=== PATIENT | female | born 1940 | race Caucasian/White ===

== ENCOUNTER 2016-07-08 16:19 | Inpatient (IN) | payer MEDICARE, MEDICAID ==
[~2016-07-08] VITALS: Ht 165.1 cm; Wt 102.8 kg
--- NOTE | ~2016-07-08 | PR ---
[place], [place] PROGRESS NOTE NAME: EMANUEL IDEZ [facility] #: [id number] UNIT #: [id number] ROOM: 504 DOCTOR: JOHN MUÑIZ MD,CHIQUI BIRTHDATE: [birth year] DOS: 07/10/2016 PULMONARY FOLLOWUP SUBJECTIVE: She has been noted comfortable at this time, underwent the upper endoscopy for the patient that was completed by Dr. Rodrigues. The patient was noted with findings of esophagitis, gastric ulcer, and gastritis. She was denying any symptoms of acute abdominal pain at the time of the assessment. She denied symptoms of hemoptysis. Mild cough was noted without any sputum expectoration. OBJECTIVE: VITAL SIGNS: For the patient, which has been recorded; temperature normal, respiratory rate 18, heart rate 82, blood pressure 146/80. Pulse oxygen saturation of the patient noted 3 liters nasal cannula 95% saturation. HEENT: Examination showed no new change. NECK: Supple and obese. CARDIOVASCULAR: S1, S2 audible. LUNGS: Absent breath sounds in the left lower portion of the lungs for the patient was noted. ABDOMEN: Soft with chronic obesity. EXTREMITIES: Shows mild edema. LABORATORY DATA: CBC this morning, WBC count 17.5, hemoglobin 9.4, hematocrit 30.3, platelet count was normal. The BMP of the patient of 07/10/2016, glucose 144, BUN and creatinine was normal, sodium 150, CO2 of 34. Blood culture: The patient showed no bacterial growth. The patient ____ obtained on the . The CEA level for this patient that was done this morning was noted severely elevated at 1186. IMPRESSION: 1. The patient who has been currently admitted to the hospital noted with a large left-sided pleural fluid. The patient will be planned for thoracentesis to be done today. 2. Possibility of abdominal malignancy originating from the colon was suspected strongly because of the elevation of the CEA level. Possible consideration of malignant pleural fluid remains in consideration. Further assessment of current finding at this time does not seem to be consistent with acute pneumonia at the reason of the pleural fluid. 3. The patient with hemetemesis as well. 4. Gastrointestinal bleeding. PLAN OF TREATMENT: She was planned for thoracentesis to be done at the bedside. The patient with ultrasound assessment. She was agreeable for the procedure. Continuation of the previous treatment, plan of management, and further investigation for this patient for the possible source of malignancy for this patient originating from the abdomen. Other supportive plan of therapy and management, plan of care. Usual treatment. [place], [place] PROGRESS NOTE NAME: EMANUEL DIEZ UNIT #: [id number] ROOM: [facility] DOCTOR: CHIQUI HARRELL MD BIRTHDATE: [birth year] CHIQUI LOPEZ MD CM:PNTRANS [id number] CHIQUI MUÑIZ MD 07/11/165 interface
--- NOTE | ~2016-07-08 | PROC NOTE ---
[place], [place] PROCEDURE NOTE NAME: EMANUEL DIEZ [facility] #: [id number] UNIT #: [id number] ROOM: 504 DOCTOR: JOHN MUÑIZ MD,CHIQUI BIRTHDATE: [birth year] DOS: PROCEDURE: Thoracentesis, left side with ultrasound guidance. PREOPERATIVE DIAGNOSIS: Large left pleural fluid for the patient, etiology undetermined. POSTOPERATIVE DIAGNOSIS: Removal of 1400 mL of mildly hemorrhagic pleural fluid from the patient's left pleural space without any difficulty. PROCEDURE DESCRIPTION: Informed consent obtained for the patient. The patient was placed in a sitting position. Ultrasound of the chest for the patient was done and large pocket of fluid at the site of thoracentesis isolated in the posterior left lower chest wall. After that, skin was cleaned with chlorhexidine solution. Local anesthetic given in the skin and intercostal space. During administration of local anesthetic, a small amount of fluid was aspirated. After that, incision given in the skin. [place] thoracentesis catheter introduced through the incision into the left pleural space without any difficulty. A total of 1400 mL of mildly hemorrhagic pleural fluid was removed from the left pleural space without any difficulty and sent for all the appropriate testing including cytology. Procedure was well tolerated by the patient without any difficulty. Chest x-ray of the patient that was done post-procedure was personally reviewed and there was no evidence of pneumothorax, mild improvement in the aeration of the lungs was noted with remaining area of pleural fluid, pleural thickening or atelectasis of the left lower lobe. CHIQUI LOPEZ MD CM:PROCNOTE:PROCEDURE NOTE [id number] CHIQUI MUÑIZ MD
--- NOTE | ~2016-07-08 | CON ---
[place], [place] REPORT OF CONSULTATION [id number] UNIT #: [id number] ROOM: 504 DOCTOR: DK MARCELO,NIKKI BIRTHDATE: [birth year] DOS: 07/09/2016 HISTORY OF PRESENT ILLNESS: A 75-year-old patient who was admitted through the Emergency Room, brought from the shelter and with coffee ground emesis, Zofran and PPI has been given. The patient had to be admitted for definitive evaluation and assessment of the source of GI bleed. The patient's white blood cell was 14.9, H and H of 11 and 36. Comprehensive metabolic panel, BUN and creatinine normal. Glucose of 201. Electrolytes were balanced. Liver function tests were within normal limits. Gastric occult was positive. Arterial blood gases, pH of 7.5, pCO2 of 50 and pO2 of 60. Lactic acid was 2.1. Troponin was addressed. NG tube tip in the gastric pouch is noticed. Chest x-ray, persistent left pleural effusion. Urinalysis was bacteria 4+. Lactic acid followup 2+. Chest CT was done, nodularity and abdominal omentum, mesentery compatible with tumor spread, further evaluation needed. There is diffuse colonic diverticulosis. There appears to be somewhat focal area of adherent small bowel in the left pelvic, some air fluid level is noticed. Moderate left pleural effusion reassessed. CBC differential periodically reevaluated, latest one white blood cell 18, H and H dropped to 10 and 32. Her INR is 1.2. Comprehensive metabolic panel, electrolyte balance, phosphorus 4, magnesium 2.2. Liver function test normal. Hemoglobin A1c 7.8. Vitamin B12 is 1200, normal and above, folic acid 5.26, borderline low. Thyroid studies within normal limits. PAST MEDICAL HISTORY: Associated with diabetes mellitus, chronic obstructive pulmonary disease, respiratory insufficiency, hypothyroidism, obesity, essential hypertension. PAST SURGICAL HISTORY: Cholecystectomy, hysterectomy, thyroidectomy, tonsillectomy, back surgery. SOCIAL HISTORY: Resides in shelter, history of tobacco use, stopped 3 years ago. ALLERGIES: SULFA AND ADENOSINE. MEDICATIONS: List has been reviewed including Zantac p.r.n. Otherwise, other medications reviewed. PHYSICAL EXAMINATION: GENERAL: Not acutely distressed, obese. VITAL SIGNS: Stable. HEENT: Head normocephalic, nontraumatic. Mouth and buccal mucosa benign. NECK: Supple, no thyromegaly. CHEST: Symmetric anatomy, equal expansion. No wheeze, no rhonchi. HEART: Normal sinus rhythm, no murmur, no gallop. ABDOMEN: Soft. No hepato-organomegaly. Obese, bowel sounds present. EXTREMITIES: No cyanosis, no pedal edema. NEUROLOGIC: Alert and oriented. LABORATORY DATA: Reviewed. Records reviewed. Data reviewed. [place], [place] REPORT OF CONSULTATION NAME: EMANUEL DIEZ UNIT #: [id number] ROOM: [facility] DOCTOR: NIKKI ROOT MD BIRTHDATE: [birth year] IMPRESSION: Hematemesis, shortness of breath, pleural effusion. OTHER ADJUNCTIVE DIAGNOSES: As outlined in paragraph past medical history, obesity, hypothyroidism, hypercholesterolemia, hypertension, diabetes mellitus, chronic obstructive pulmonary disease, and as indicated. PLAN AND DISCUSSION: EGD investigation of hematemesis. NIKKI ROOT MD CM:CONSTR:REPORT OF CONSULTATION 07/09/16 0949 interface
--- NOTE | ~2016-07-08 | PR ---
[place], [place] PROGRESS NOTE NAME: EMANUEL DIEZ [facility] #: [id number] UNIT #: [id number] ROOM: 504 DOCTOR: JOHN MUÑIZ MD,CHIQUI BIRTHDATE: [birth year] DOS: 07/11/2016 SUBJECTIVE: She was still complaining of abdominal pain. Shortness of breath has been noted significantly decreased after the thoracentesis, which were done yesterday for the patient with large volume of pleural fluid was removed. She denies any symptoms of chest pain. Mild cough was noted without any sputum expectoration. Denies any wheezing. OBJECTIVE: VITAL SIGNS: Show normal temperature, respirations 20, heart rate 72, blood pressure 150/72 recorded this morning. Intake 3000 mL, output 1300 mL, does not include the pleural fluid. The pulse oxygen saturation 95% on 3 liters nasal canula. HEENT: Chronic obesity. NECK: Supple, short and obese. CARDIOVASCULAR: S1, S2 audible. LUNGS: Improvement in air entry noted generally in the left lung; however, breath sounds still noted decreased in the left lower lung posteriorly. ABDOMEN: Soft and obese. LABORATORY DATA: BMP of the patient that was done this morning showed glucose 165. Sodium 147. CBC this morning: WBC count 13.4, hemoglobin 9.5, hematocrit 30.9 and platelet count was normal. Chest x-ray post thoracentesis was already described in yesterday's note. The pleural fluid analysis yesterday on the patient shows 728 wbc's, 17,000 rbc's with 85% macrophages. Chemistry were noted with protein 3.5, cholesterol of 53, albumin 1.4, amylase 15, triglycerides 38 and LDH of 157. Findings consistent with an exudative pleural fluid. The culture for the patient on the pleural fluid was pending. Gram stain does not show any organisms. IMPRESSION: 1. Large pleural fluid in the left side. The etiology is unclear with possible consideration of malignant pleural fluid, the patient remains in consideration. 2. Suspected cancer of the colon for this patient as well with abdominal pain. 3. Chronic obesity as well. 4. Gastrointestinal bleeding for the patient, which has been also assessed. PLAN OF TREATMENT: No changes in the plan of management at this time. Continue current therapy as in progress. Usual care. Further investigation of abdominal problem to be continued. Monitoring results of the pleural fluid cytology, current exudate, lymphocyte predominant pleural fluid. [place], [place] PROGRESS NOTE NAME: EMANUEL DIEZ UNIT #: [id number] ROOM: 504 DOCTOR: CHIQUI HARRELL MD BIRTHDATE: [birth year] CHIQUI LOPEZ MD CM:PNSARA [id number] CHIQUI MUÑIZ MD 07/11/16 2122 interface
--- NOTE | ~2016-07-08 | PROC NOTE ---
[place], [place] PROCEDURE NOTE [id number] #: [id number] ROOM: 504 DOCTOR: DK MARCELO,NIKKI BIRTHDATE: [birth year] DOS: 07/09/2016 HISTORY OF PRESENT ILLNESS: The patient presented from half-way with hematemesis, to undergo investigation. The patient has some abdominal distress for past 1 week. PROCEDURE: Today's procedure part of investigation is panendoscopy. PREMEDICATION: Versed and Diprivan. SCOPE: Olympus folding gastroscope Q10 video. REPORT: After putting the patient in the left lateral position and after application of lubricant to the scope, the scope was introduced. Thereafter, under direct visualization, I advanced through the length of esophagus without difficulty. Large volume of bile retention in the gastric pouch was suctioned out and removed. Scope was negotiated into duodenum again. Presence of bilious matter into the second part of the duodenum was identified sign was noticed, suctioned out. Mid gastric pouch small ulceration was photographed, biopsied. The patient extubated, tolerated procedure well. IMPRESSION: Distal esophagitis; bile reflux; gastritis; hypertrophic gastric folds; mid gastric small ulcerations, status post biopsy; presence of bilious matter retention in the duodenum, the latter may signify small-bowel obstruction. CT scan of the abdomen today pending. NIKKI ROOT MD CM:PROCNOTE:PROCEDURE NOTE [id number] NIKKI ROOT MD
--- NOTE | ~2016-07-08 | CON ---
[place], [place] REPORT OF CONSULTATION [id number] UNIT #: [id number] ROOM: 504 DOCTOR: CHIQUI HARRELL MD BIRTHDATE: [birth year] DOS: 07/09/2016 REASON FOR CONSULTATION: To assess the patient for possibility of acute pneumonia, respiratory failure. HISTORY OF PRESENT ILLNESS: A 75-year-old female of a assisted brought to the hospital. The patient started with symptoms of having emesis containing blood. The patient has been noted with symptoms of shortness of breath as well. The patient was assessed in the Emergency Room, underwent CT scan of the chest, abdomen and pelvis and currently hospitalized. She does complain of pain, which is described nonspecific in the mid portion of the abdomen, mild to moderate without any radiation. She denies symptoms of emesis in the last 12 hours. The patient denies any symptoms of coughing or sputum expectoration. Denies symptoms of active wheezing at the present time. REVIEW OF SYSTEMS: CONSTITUTIONAL SYMPTOMS: Fatigue and tiredness noted without symptoms of fever or chills. EYES: Denies any burning, redness, or tenderness. EARS, NOSE, THROAT SYMPTOMS: No sore throat, hoarseness, otalgia, postnasal drainage or epistaxis. CARDIOVASCULAR: Denies anginal pain, edema or pain of the lower extremities. GASTROINTESTINAL: Abdominal pain with hemetemesis was described. There were no melena or hematochezia. Denies symptoms of nausea at the present time. GENITOURINARY: Denies dysuria, suprapubic pain, or hematuria. MUSCULOSKELETAL: Denies acute joint pain, redness, or tenderness. SKIN: No lesions or rashes. CENTRAL NERVOUS SYSTEM: Denies dizziness, headache or diplopia. Remaining systems were reviewed with the patient, they were noted all negative. PAST MEDICAL HISTORY: 1. Centrilobular emphysema. 2. Type 2 diabetes mellitus. 3. Essential hypertension. 4. Gastroesophageal reflux disease. 5. Hypercholesterolemia. 6. Hypothyroidism. 7. Chronic obesity. 8. General anxiety disorder. 9. Depression. SOCIAL HISTORY: The patient is currently , has 4 children. Denies history of alcohol or illicit drug use. Tobacco use was noted. The patient since younger age, a pack of cigarettes per day until 1996. There were no occupation related pulmonary exposure history. FAMILY HISTORY: Mother from complication related to coronary artery disease at age of 8787 years old, history about father was unknown. [place], [place] REPORT OF CONSULTATION NAME: [facility]IE[facility] [id number] UNIT #: [id number] ROOM: [facility] DOCTOR: JOHN MUÑIZ MD,CHIQUI BIRTHDATE: [birth year] PAST SURGICAL HISTORY: 1. T and A. 2. Lower back surgery. 3. Appendectomy. 4. Cardiac catheterization. 5. Cholecystectomy. 6. Complete hysterectomy. 7. Partial thyroidectomy. 8. Fibrobronchoscopy 05/20/2016. MEDICATIONS: The current administered medications noted use of IV Solu-Medrol, sliding scale insulin coverage, DuoNeb, Protonix intravenously b.i.d. 40 mg, Levaquin, vancomycin, Zosyn, morphine, and Restoril p.r.n. use. DRUG ALLERGY HISTORY: 1. ALLERGY TO SULFA DRUGS. 2. ADENOSINE. PHYSICAL EXAMINATION: GENERAL: A 75-year-old female who has been currently noted without any distress complaining of some pain in the abdomen. VITAL SIGNS: Height of 5 feet 5 inches, weight of 226 pounds, BMI 37.7. Vital signs of the patient which has been recorded showed the temperature noted 99.5 degree Fahrenheit on admission that was noted normal, respirations 16-18, heart rate of 80-89. Intake since admission 0 mL, the output 750 mL recorded. The pulse oxygen saturation on 3 liters nasal cannula 97% saturation recorded. HEENT: Examination shows head was atraumatic. Eyes nonicterus. NECK: Supple. CARDIOVASCULAR: S1, S2 audible. LUNGS: The patient was noted with moderate decreased breath sounds in the lungs bilaterally more in the left lower portion of the lung. There were no crackles or wheezing heard. ABDOMEN: Soft with moderate obesity, nonspecific tenderness, hypoactive bowel sounds. EXTREMITIES: Shows no edema, clubbing, cyanosis. CENTRAL NERVOUS SYSTEM: Cranial nerves II-XII were grossly intact. There was no gross focal deficit. SKIN: Showed no lesions or rashes. MUSCULOSKELETAL: No acute deformities. LABORATORY DATA: Arterial blood gas of the patient that were done yesterday, pH 7.51, pCO2 of 50, pO2 of 60 on room air yesterday in the Emergency Room. CMP of the patient on admission yesterday in the Emergency Room, normal BUN and creatinine. Glucose 201, carbon dioxide 43, chloride of 92. CBC of the patient yesterday, WBC count 14.9, hemoglobin 11.5, hematocrit 36.4, platelet count was normal. Troponin for patient yesterday and this morning were noted normal. Lactic acid 2.1, yesterday as well noted. CBC of the patient that was done this morning showed WBC count 18.4, hemoglobin 10, hematocrit 32.0, platelet count was ____ is normal. CMP this morning for the patient was noted as glucose 170, BUN and creatinine was normal. Sodium 146, carbon dioxide 36. [place], [place] REPORT OF CONSULTATION NAME: EMANUEL DIEZ UNIT #: [id number] ROOM: [facility] DOCTOR: JOHN MUÑIZ MD,[facility] BIRTHDATE: [birth year] IMAGING DATA: Review of the radiology data for this patient. The one view chest x-ray that was done for the patient yesterday on 07/08/2016, shows persistent basilar area of atelectasis, infiltration and pleural fluid. This was compared to the previous chest x-ray. CT scan of the chest for the patient was also obtained which shows moderate size left-sided pleural fluid was noted at this time, which appeared to be increased in size with area of compression atelectasis. IMPRESSION: 1. The patient has been currently admitted to the hospital with abdominal symptoms. The patient of hematemesis, possibility of GI bleeding, which has been investigated and abdominal pain. She was also noted with increase of pleural fluid on the left side. The differential diagnoses would be considered pleural fluid related to bacterial pneumonia and malignancy and others which will require further assessment. 2. History of chronic obesity as well. 3. Mild lactic acidosis related to the underlying infection or other etiology would be considered. Leukocytosis has been observed with a low-grade fever. PLAN OF TREATMENT: Proceed with the investigation of the GI tract for this patient and assessment for possible thoracentesis for this patient with ultrasound guidance will be discussed with the patient once the patient's abdominal problem resolved. In the meantime, continue current antibiotics for this patient. Other supportive plan of management. The oxygen supplementation in case of hypoxia. Metabolic alkalosis. The patient noted secondary to hypercarbia, possibility of intravascular volume depletion partially improved for the patient with IV hydration. Other supportive plan of management to be continued as well. Usual care. Other supportive therapy, plan of care as well. Usual care. Further treatment changes will be done based on the progression of the illness. CHIQUI LOPEZ MD CM:CONSTR:REPORT OF CONSULTATION 1302 07/11/16 0153 interface
[~2016-07-08 16:19] MED LIST: ADVAIR DISKUS 21 DSK IH; ASPIRIN81 M1 PO; ATIVAN0.5 MG PO; CELEXA40 MG PO; CITALOPRAM20 MG PO; COREG6.25 MG PO; DIFLUCAN100 MG PO; DOXYCYCLINE MO100 M1 PO; DOXYCYCLINE100 M3 PO; FEROSUL325 MG PO; KLOR-CON 1010 ME1 PO; LASIX20 MG PO; LOTENSIN PO; METFORMIN500 MG PO; NATURE'S BLEND F1 MG PO; NORVASC5 MG PO; OXYCODONE AND A1 T13 PO; OXYGEN NAS; POTASSIUM; PREDNISONE10 MG PO; PREVACID30 M1 PO; PROMETHAZINE25 M1 PO; Percocet 325 MG1 TAB PO; SPIRIVA18 MCG IH; SYNTHROID,LEV100 MCG PO; SYNTHROID,LEV125 MCG PO; VENTOLIN H0.09 MG/AC IH; VENTOLIN H0.09 MG/AC INH; VITAMIN D50000 I3 PO; ZOCOR20 MG PO; ZOLOFT100 MG PO
[2016-07-08 16:31] VITALS: BP 133/70
[2016-07-08 16:54] LABS: BASO % 0.2 % (0.0-1.0); HEMATOCRIT 36.4 % (37.0-47.0); HEMOGLOBIN 11.5 g/dl (12.0-16.0); IG # 0.1 10*3/uL (0.0-0.1); LYMPH % 13.2 % (27.0-41.0); MEAN CELL VOLUME 91.9 fl (81.0-99.0); MEAN CORPUSCULAR HGB CONC 31.6 g/dl (33.0-37.0); MEAN PLATELET VOLUME 8.7 fl (9.6-12.3); MONO # 0.7 10*3/uL (0.1-1.0); MONO % 4.5 % (3.0-9.0); NEUT # 12.1 10*3/uL (2.3-7.9); NEUT % 81.3 % (47.0-73.0); PLATELET COUNT AUTOMATED 397 10*3/uL (130-400); RED BLOOD COUNT 3.96 10*6/uL (4.10-5.10); RED CELL DISTRI WIDTH 14.7 % (0-14.5); WHITE BLOOD COUNT 14.9 10*3/uL (4.8-10.8)
[2016-07-08 17:11] LABS: ALBUMIN 2.1 gm/dl (3.1-4.5); ALKALINE PHOSPHATASE 75 U/L (45-117); BILIRUBIN, TOTAL 0.4 mg/dl (0.2-1.0); BUN 20 mg/dl (7-24); CHLORIDE 92 mmol/L (98-107); EST GLOM FILT AFRICAN AMERICAN > 60 ml/min; GLUCOSE 201 mg/dL (65-99); POTASSIUM 3.6 mmol/L (3.5-5.1); SGOT/AST 21 IU/L (3-35); SGPT/ALT 15 U/L (12-78); SODIUM 144 mmol/L (136-145); TOTAL PROTEIN 7.2 gm/dL (6.4-8.2)
[2016-07-08 17:14] LABS: CARBON DIOXIDE 43 mmol/L (21-32)
[2016-07-08 17:23] LABS: GASTROCCULT POSITIVE (NEGATIVE)
[2016-07-08 17:24] LABS: GASTROCCULT pH 3
[2016-07-08 17:38] LABS: ABG BASE EXCESS 15.8 mmol/L (-2.0-2.0); ABG CO2 CONTENT 42.9 mmol/L (23-27); ABG HCO3 41.3 mmol/l (22-26); ARTERIAL BLOOD GAS PH 7.519 (7.35-7.45); ARTERIAL BLOOD GAS PO2 60.3 mmHg (80-90)
[2016-07-08 19:42] LABS: LA>2 REFLEX 2 HR DRAW NOW
[2016-07-08 19:51] VITALS: BP 168/79
[2016-07-08 19:56] LABS: LA>2 RFLX FOLLOW UP AT 2 HRS 2.1 mmol/L (0.4-2.0)
[2016-07-08 20:34] LABS: BILIRUBIN 1+ (NEGATIVE); BLOOD 2+ (NEGATIVE); CLARITY SL CLOUDY (CLEAR); COLOR YELLOW (YELLOW); GLUCOSE NEGATIVE (NEGATIVE); KETONE NEGATIVE (NEGATIVE); LEUKO ESTERASE NEGATIVE (NEGATIVE); NITRITE NEGATIVE (NEGATIVE); PH 7.5 (5.0-9.0); PROTEIN 1+ (NEGATIVE); SPECIFIC GRAVITY 1.015 (1.005-1.030)
[2016-07-08 20:42] LABS: BACTERIA 4+; MUCOUS 1+; URINE REFLEX COMMENT YES (NO)
[2016-07-08 21:50] LABS: LA>2 REFLEX 4 HR DRAW NOW
[2016-07-08 22:30] VITALS: BP 145/76; BP 146/76
[2016-07-08] MEDS ORDERED: ALUM-MAG HYDRO360 ML PO (23:37)
[2016-07-08] MEDS ORDERED: JANUVIA50 MG PO (23:37)
[2016-07-08] MEDS ORDERED: LIQUACEL PO (23:38)
[2016-07-08] MEDS ORDERED: MELATONIN5 M6 PO (23:39)
[2016-07-08] MEDS ORDERED: ZANTAC 150150 MG PO (23:40)
[2016-07-09] VITALS (7 sets, daily range): BP systolic 94–151; BP diastolic 45–74
[2016-07-09 00:35] LABS: BASO % 0.1 % (0.0-1.0); HEMOGLOBIN 10.6 g/dl (12.0-16.0); IG # 0.1 10*3/uL (0.0-0.1); LYMPH # 1.9 10*3/uL (1.3-4.4); LYMPH % 10.8 % (27.0-41.0); MEAN CELL VOLUME 93.2 fl (81.0-99.0); MEAN CORPUSCULAR HGB CONC 31.2 g/dl (33.0-37.0); MEAN PLATELET VOLUME 9.3 fl (9.6-12.3); MONO # 0.8 10*3/uL (0.1-1.0); MONO % 4.8 % (3.0-9.0); NEUT # 14.4 10*3/uL (2.3-7.9); NEUT % 83.5 % (47.0-73.0); PLATELET COUNT AUTOMATED 376 10*3/uL (130-400); RED BLOOD COUNT 3.65 10*6/uL (4.10-5.10); WHITE BLOOD COUNT 17.2 10*3/uL (4.8-10.8)
[2016-07-09 00:54] LABS: CKMB < 0.5 ng/ml (0.5-3.6); CPK 37 U/L (26-192); TROPONIN I < 0.015 ng/ml (<0.045)
[2016-07-09 06:34] LABS: BASO % 0.1 % (0.0-1.0); IG # 0.2 10*3/uL (0.0-0.1); LYMPH # 1.9 10*3/uL (1.3-4.4); LYMPH % 10.5 % (27.0-41.0); MEAN CELL VOLUME 92.2 fl (81.0-99.0); MEAN CORPUSCULAR HGB 28.8 pg (27.0-31.0); MEAN CORPUSCULAR HGB CONC 31.3 g/dl (33.0-37.0); MEAN PLATELET VOLUME 9.4 fl (9.6-12.3); MONO # 0.6 10*3/uL (0.1-1.0); NEUT # 15.7 10*3/uL (2.3-7.9); NEUT % 85.3 % (47.0-73.0); PLATELET COUNT AUTOMATED 341 10*3/uL (130-400); RED BLOOD COUNT 3.47 10*6/uL (4.10-5.10); WHITE BLOOD COUNT 18.4 10*3/uL (4.8-10.8)
[2016-07-09 06:50] LABS: TROPONIN I 0.018 ng/ml (<0.045)
[2016-07-09 06:57] LABS: CKMB < 0.5 ng/ml (0.5-3.6); CPK 25 U/L (26-192)
[2016-07-09 07:07] LABS: INTERNATIONAL NORM RATIO 1.2 (2.0-3.5); PROTHROMBIN TIME 12.6 SECONDS (9.0-12.4)
[2016-07-09 07:08] LABS: ALBUMIN 1.8 gm/dl (3.1-4.5); ALKALINE PHOSPHATASE 65 U/L (45-117); BILIRUBIN, TOTAL 0.4 mg/dl (0.2-1.0); BUN 18 mg/dl (7-24); CARBON DIOXIDE 36 mmol/L (21-32); CHLORIDE 102 mmol/L (98-107); CHOLESTEROL 101 mg/dL (<200); EST GLOM FILT AFRICAN AMERICAN > 60 ml/min; FREE T4 1.45 ng/dl (0.76-1.46); GLUCOSE 170 mg/dL (65-99); HDL CHOLESTEROL 36 mg/dl (40-60); LDL CHOLESTEROL 41 mg/dL (9-159); MAGNESIUM 2.2 mg/dL (1.5-2.1); POTASSIUM 3.7 mmol/L (3.5-5.1); SGOT/AST 15 IU/L (3-35); SGPT/ALT 13 U/L (12-78); SODIUM 146 mmol/L (136-145); TOTAL PROTEIN 6.3 gm/dL (6.4-8.2); TRIGLYCERIDES 119 mg/dl (<150); VLDL CHOLESTEROL 24 mg/dL (6-40)
[2016-07-09 07:40] LABS: HEMOGLOBIN A1c 7.8 % (4.8-5.6)
[2016-07-09 08:26] LABS: VITAMIN D, 25-HYDROXY 35.3 ng/mL (30-100)
[2016-07-09 08:27] LABS: FOLIC ACID 5.26 ng/mL (>5.38)
[2016-07-09 12:23] LABS: CKMB 0.5 ng/ml (0.5-3.6)
[2016-07-09 12:28] LABS: CPK 50 U/L (26-192); TROPONIN I < 0.015 ng/ml (<0.045)
[2016-07-10] VITALS: BP 144/70
[2016-07-10 06:01] LABS: BASO % 0.1 % (0.0-1.0); HEMATOCRIT 30.7 % (37.0-47.0); HEMOGLOBIN 9.4 g/dl (12.0-16.0); IG # 0.2 10*3/uL (0.0-0.1); LYMPH # 1.4 10*3/uL (1.3-4.4); LYMPH % 8.2 % (27.0-41.0); MEAN CORPUSCULAR HGB 29.1 pg (27.0-31.0); MEAN CORPUSCULAR HGB CONC 30.6 g/dl (33.0-37.0); MEAN PLATELET VOLUME 9.4 fl (9.6-12.3); MONO # 0.8 10*3/uL (0.1-1.0); MONO % 4.4 % (3.0-9.0); NEUT # 15.1 10*3/uL (2.3-7.9); NEUT % 86.1 % (47.0-73.0); PLATELET COUNT AUTOMATED 318 10*3/uL (130-400); RED BLOOD COUNT 3.23 10*6/uL (4.10-5.10); RED CELL DISTRI WIDTH 14.7 % (0-14.5); WHITE BLOOD COUNT 17.5 10*3/uL (4.8-10.8)
[2016-07-10 06:07] LABS: BUN 18 mg/dl (7-24); CARBON DIOXIDE 34 mmol/L (21-32); CHLORIDE 107 mmol/L (98-107); EST GLOM FILT AFRICAN AMERICAN > 60 ml/min; GLUCOSE 144 mg/dL (65-99); POTASSIUM 3.6 mmol/L (3.5-5.1); SODIUM 150 mmol/L (136-145)
[2016-07-10 08:00] VITALS: BP 146/80
[2016-07-10 12:00] VITALS: BP 147/74
[2016-07-10 13:19] LABS: BODY FLUID RBC 17000 /uL; BODY FLUID WBC 728 /uL
[2016-07-10 13:22] LABS: BODY FLUID TYPE PLEURAL
[2016-07-10 13:44] LABS: BODY FLUID ALBUMIN 1.4 g/dL; BODY FLUID AMYLASE 15 U/L; BODY FLUID CHOLESTEROL 53 mg/dl; BODY FLUID GLUCOSE 187 mg/dl; BODY FLUID LDH 157 IU/L; BODY FLUID PROTEIN 3.5 g/dl; BODY FLUID TRIGLYCERIDE 38 mg/dl
[2016-07-10 13:49] LABS: BF LYMPHOCYTES 85 %; BF MACROPHAGES 2 %; BF MESOTHELIALS 6 %; BF NEUTROPHILS 7 %
[2016-07-10 16:00] VITALS: BP 152/81
[2016-07-10 20:00] VITALS: BP 137/67
[2016-07-11] VITALS: BP 136/72
[2016-07-11 06:25] LABS: HEMATOCRIT 30.9 % (37.0-47.0); HEMOGLOBIN 9.5 g/dl (12.0-16.0); MEAN CELL VOLUME 93.4 fl (81.0-99.0); MEAN CORPUSCULAR HGB 28.7 pg (27.0-31.0); MEAN CORPUSCULAR HGB CONC 30.7 g/dl (33.0-37.0); MEAN PLATELET VOLUME 9.2 fl (9.6-12.3); PLATELET COUNT AUTOMATED 289 10*3/uL (130-400); RED BLOOD COUNT 3.31 10*6/uL (4.10-5.10); RED CELL DISTRI WIDTH 14.4 % (0-14.5); WHITE BLOOD COUNT 13.4 10*3/uL (4.8-10.8)
[2016-07-11 06:38] LABS: BUN 14 mg/dl (7-24); CARBON DIOXIDE 31 mmol/L (21-32); CHLORIDE 109 mmol/L (98-107); EST GLOM FILT AFRICAN AMERICAN > 60 ml/min; GLUCOSE 165 mg/dL (65-99); POTASSIUM 3.9 mmol/L (3.5-5.1); SODIUM 147 mmol/L (136-145)
[2016-07-11 06:41] LABS: VANCOMYCIN TROUGH 10.3 ug/mL (10-20)
[2016-07-11 07:08] LABS: LYMPHOCYTE # 0.9 10*3/uL (1.3-4.4); MONOCYTE # 0.5 10*3/uL (0.1-1.0); NEUTROPHIL # 11.9 10*3/uL (2.3-7.9); NEUTROPHILS 89 % (47-73); PLATELET SUFFICIENCY NORMAL (NORMAL); POLYCHROMASIA SLIGHT; TOTAL CELLS COUNTED 100 #CELLS
[2016-07-11 08:00] VITALS: BP 150/72
[2016-07-11] MEDS ORDERED: DOXYCYCLINE100 M3 PO (10:28)
[2016-07-11 12:00] VITALS: BP 153/71
[2016-07-11 16:11] VITALS: BP 154/80
[2016-07-11 20:00] VITALS: BP 145/75
[2016-07-12] VITALS: BP 148/78
== END 2016-07-12 04:29 | disposition short-term general hospital (02) | DRG 871 ==
LOC: ED 16:19 → EDHOLD 19:06 → 5E 19:06
PROVIDERS: Hospitalist; Internal Medicine; Internal Medicine Critical Care Medicine; Registered Nurse
PROC: 0W9B3ZX Drainage of Left Pleural Cavity, Percutaneous Approach, Diagnostic (ICD-10-PCS; 2016-07-08)
PROC: 0DB68ZX Excision of Stomach, Via Natural or Artificial Opening Endoscopic, Diagnostic (ICD-10-PCS; principal; 2016-07-09)
DX: A41.9 Sepsis, unspecified organism (principal); J18.9 Pneumonia, unspecified organism; J96.21 Acute and chronic respiratory failure with hypoxia; E43 Unspecified severe protein-calorie malnutrition; R18.0 Malignant ascites; E87.0 Hyperosmolality and hypernatremia; J90 Pleural effusion, not elsewhere classified; C78.6 Secondary malignant neoplasm of retroperitoneum and peritoneum; K92.2 Gastrointestinal hemorrhage, unspecified; R65.20 Severe sepsis without septic shock; J44.9 Chronic obstructive pulmonary disease, unspecified; E78.00 Pure hypercholesterolemia, unspecified; Z86.73 Personal history of transient ischemic attack (TIA), and cerebral infarction without residual deficits; E03.9 Hypothyroidism, unspecified; Z99.81 Dependence on supplemental oxygen; Z88.2 Allergy status to sulfonamides; Z88.8 Allergy status to other drugs, medicaments and biological substances; E66.01 Morbid (severe) obesity due to excess calories; D64.9 Anemia, unspecified; R91.8 Other nonspecific abnormal finding of lung field; D49.89 Neoplasm of unspecified behavior of other specified sites; K57.30 Diverticulosis of large intestine without perforation or abscess without bleeding; E83.41 Hypermagnesemia; E55.9 Vitamin D deficiency, unspecified; E53.8 Deficiency of other specified B group vitamins; F32.9 Major depressive disorder, single episode, unspecified; F41.1 Generalized anxiety disorder; K21.0 Gastro-esophageal reflux disease with esophagitis; K25.9 Gastric ulcer, unspecified as acute or chronic, without hemorrhage or perforation; K29.70 Gastritis, unspecified, without bleeding; Z87.891 Personal history of nicotine dependence; E11.65 Type 2 diabetes mellitus with hyperglycemia; Z68.37 Body mass index [BMI] 37.0-37.9, adult